=== PATIENT | female | born 1950 | race Caucasian/White ===

== ENCOUNTER 2016-07-15 05:10 | Day surgery (SDC) | payer MEDICARE, MEDICAID ==
[~2016-07-15] VITALS: Ht 163.8 cm; Wt 66.3 kg
[~2016-07-15 05:10] MED LIST: ADVIL200 MG PO; AMBIEN 5MG TABLE5 MG PO; ASPIRIN 32325 MG/TAB PO; ASPIRIN 81M81 MG/TA2 PO; CEPACOL SORE TH1 LO8 MM; CIPRO 500MG TA500 MG PO; CLARITIN 1010 MG/TAB PO; DEXILANT60 MG PO; FLAGYL500 MG PO; FLEXERIL 1010 MG/TAB PO; IMODIUM A-D2 MG PO; MULTI VITAMINS1 TAB PO; NORCO 325 MG-101 TAB PO; NORCO 325 MG-51 TAB PO; NORCO 325 MG-7.1 TAB PO; OSCAL 500 TAB500 MG PO; PHENERGAN 25 TA25 MG PO; PRILOSEC 20MG20 MG PO; PROTONIX 40MG T40 MG PO; PROZAC40 MG PO; REMERON 15M15 MG/TA1 PO; REQUIP 0.5MG0.5 MG PO; SARNA ANTI-ITC222 ML TP; SENOKOT S 50 MG1 TAB PO; TAZTIA360 PO; VITAMIN C500 MG PO; ZESTRIL 20MG TA20 MG PO; ZOFRAN ODT8 MG PO
[2016-07-15 06:09] VITALS: BP 110/54; PULSE 101; TEMP 98.1
[2016-07-15 08:25] VITALS: BP 99/44; PULSE 80; TEMP 97.6
[2016-07-15 08:40] VITALS: BP 85/68; PULSE 81
[2016-07-15 08:50] VITALS: BP 111/52; PULSE 89
[2016-07-15 10:00] VITALS: BP 105/51; PULSE 75; TEMP 97.9
== END 2016-07-15 09:15 | disposition home or self-care (01) ==
LOC: SDCO 05:10
DX: T84.84XA Pain due to internal orthopedic prosthetic devices, implants and grafts, initial encounter (principal); T81.89XA Other complications of procedures, not elsewhere classified, initial encounter; M19.90 Unspecified osteoarthritis, unspecified site; I10 Essential (primary) hypertension; M06.9 Rheumatoid arthritis, unspecified; Z79.899 Other long term (current) drug therapy; Z79.82 Long term (current) use of aspirin
CPT/HCPCS: J0690; J1100; J2250; J2405; J2704; J2765; J3010; J7120

== ENCOUNTER 2016-10-11 13:22 | Inpatient (IN) | payer MEDICARE, MEDICAID ==
[~2016-10-11] VITALS: Ht 162.6 cm; Wt 63.1 kg
[2016-10-11] MEDS ORDERED: MIRTAZAPINE7.5 MG PO (14:44)
[2016-10-11 15:21] LABS: MEAN CELL VOLUME 75 fl (80.0-100.0); MEAN CORPUSCULAR HGB CONC 33 g/dl (33.0-37.0); MEAN PLATELET VOLUME 10.8 fl (7.4-10.4); PLATELET COUNT 570 K/mm3 (130-400); REDCELL DISTRIBUTION WIDTH-CV 15.4 % (11.5-14.5)
[2016-10-11 15:31] LABS: ADJUSTED CALCIUM 8.6 mg/dL (8.4-10.2); ALBUMIN 3.5 gm/dL (3.5-5.0); BILIRUBIN,TOTAL 0.7 mg/dL (0.0-1.0); CALCIUM 8.2 mg/dL (8.4-10.2); CREATININE, serum 1.41 mg/dL (0.52-1.25); POTASSIUM 5.3 mmol/L (3.4-5.0); TOTAL PROTEIN 6.3 gm/dL (6.4-8.2)
[2016-10-11 15:41] LABS: HEMATOCRIT 31.5 % (37.0-47.0); HEMOGLOBIN 10.3 g/dl (12.5-16.0); MEAN CORPUSCULAR HEMOGLOBIN 25 pg (27.0-31.0); WHITE BLOOD COUNT 25.5 K/mm3 (4.8-10.8)
[2016-10-11 15:48] LABS: C-REACTIVE PROTEIN 21.7 mg/dL (0.0-0.9)
[2016-10-11 16:08] LABS: BAND 44 % (0-10); METAMYELOCYTE 1 % (0-0); MICROCYTOSIS 1+; MYELOCYTE 1 % (0-0); NEUTROPHILS 43 % (42.0-75.2); PLATELET ESTIMATE INCREASED (NORMAL); TOTAL CELLS COUNTED 101
[2016-10-11 16:09] LABS: ADD PATHOLOGY DIFF REVIEW YES
[2016-10-11 18:12] VITALS: BP 108/62; PULSE 108; TEMP 99.9
[2016-10-11 19:24] VITALS: BP 126/58; PULSE 113; TEMP 99.3
[2016-10-11 23:17] LABS: CALCIUM 7.5 mg/dL (8.4-10.2); CREATININE, serum 1.23 mg/dL (0.52-1.25); POTASSIUM 4.5 mmol/L (3.4-5.0)
[2016-10-11 23:26] VITALS: BP 133/71; PULSE 104; TEMP 99.2
[2016-10-12 04:17] VITALS: BP 96/63; PULSE 120; TEMP 99.1
[2016-10-12 07:08] LABS: MEAN CELL VOLUME 74 fl (80.0-100.0); MEAN CORPUSCULAR HGB CONC 33 g/dl (33.0-37.0); MEAN PLATELET VOLUME 11.3 fl (7.4-10.4); RED BLOOD COUNT 3.56 M/mm3 (4.10-5.30); REDCELL DISTRIBUTION WIDTH-CV 15.2 % (11.5-14.5); WHITE BLOOD COUNT 15.5 K/mm3 (4.8-10.8)
[2016-10-12 07:15] LABS: ADJUSTED CALCIUM 8.3 mg/dL (8.4-10.2); ALBUMIN 2.9 gm/dL (3.5-5.0); BILIRUBIN,TOTAL 0.6 mg/dL (0.0-1.0); CALCIUM 7.4 mg/dL (8.4-10.2); CREATININE, serum 1.04 mg/dL (0.52-1.25); MAGNESIUM 2.6 mg/dL (1.6-2.3); PHOSPHOROUS 3.7 mg/dL (2.5-4.5); POTASSIUM 4.1 mmol/L (3.4-5.0); TOTAL PROTEIN 5.5 gm/dL (6.4-8.2)
[2016-10-12 07:24] LABS: HEMATOCRIT 26.5 % (37.0-47.0); HEMOGLOBIN 8.6 g/dl (12.5-16.0); MEAN CORPUSCULAR HEMOGLOBIN 24 pg (27.0-31.0); PLATELET COUNT 426 K/mm3 (130-400)
[2016-10-12 07:42] VITALS: BP 144/65; PULSE 106; TEMP 98.8
[2016-10-12 08:39] LABS: PATHOLOGY DIFF REVIEW OK
[2016-10-12 09:11] LABS: ADD PATHOLOGY DIFF REVIEW NO
[2016-10-12 09:18] LABS: BAND 30 % (0-10); NEUTROPHILS 52 % (42.0-75.2); PLATELET ESTIMATE NORMAL (NORMAL); TOTAL CELLS COUNTED 100
[2016-10-12 11:18] VITALS: BP 146/75; PULSE 108
[2016-10-12 12:14] LABS: LACTATE DEHYDROGENASE 455 U/L (313-618)
[2016-10-12 12:23] LABS: TOTAL IRON BINDING CAPACITY 348 ug/dL (265-497)
[2016-10-12 12:49] LABS: FERRITIN 24 ng/mL (11-264)
[2016-10-12 15:25] VITALS: BP 144/66; PULSE 102; TEMP 96.9
[2016-10-12 19:16] VITALS: BP 139/82; PULSE 111; TEMP 97.7
[2016-10-12 23:45] VITALS: BP 173/78; PULSE 101; TEMP 97.9
[2016-10-13 03:14] VITALS: BP 146/81; PULSE 96; TEMP 98.6
[2016-10-13 07:38] LABS: CALCIUM 7.7 mg/dL (8.4-10.2); CREATININE, serum 0.73 mg/dL (0.52-1.25); MAGNESIUM 2.4 mg/dL (1.6-2.3); POTASSIUM 3.9 mmol/L (3.4-5.0)
[2016-10-13 08:13] VITALS: BP 149/77; PULSE 96; TEMP 98.4
[2016-10-13 11:28] VITALS: BP 148/73; PULSE 101; TEMP 98.3
[2016-10-13 15:24] VITALS: BP 144/66; PULSE 88; TEMP 98.5
[2016-10-13 20:08] VITALS: BP 160/85; PULSE 88; TEMP 97.5
[2016-10-14] VITALS (11 sets, daily range): BP systolic 105–160; BP diastolic 46–97; PULSE 77–102; TEMP 97.4–98.6
[2016-10-14 06:45] LABS: BASO # 0.1 (0.0-0.2); BASO % 0.6 % (0.0-2.0); EOS # 0.4 (0.0-0.7); EOS % 5.5 % (0-4.0); GRAN # 4.5 (1.4-6.5); GRAN % 55.9 % (42.2-75.2); LYMPH # 2.2 (1.2-3.4); LYMPH % 27.9 % (20.0-51.0); MEAN CELL VOLUME 76 fl (80.0-100.0); MEAN CORPUSCULAR HGB CONC 32 g/dl (33.0-37.0); MEAN PLATELET VOLUME 11.2 fl (7.4-10.4); MONO # 0.8 (0.1-0.6); MONO % 9.6 % (1.7-9.3); PLATELET COUNT 386 K/mm3 (130-400); RED BLOOD COUNT 3.59 M/mm3 (4.10-5.30); REDCELL DISTRIBUTION WIDTH-CV 15.3 % (11.5-14.5)
[2016-10-14 06:51] LABS: HEMATOCRIT 27.4 % (37.0-47.0); HEMOGLOBIN 8.7 g/dl (12.5-16.0); MEAN CORPUSCULAR HEMOGLOBIN 24 pg (27.0-31.0)
[2016-10-14 08:01] LABS: CALCIUM 8.1 mg/dL (8.4-10.2); CREATININE, serum 0.64 mg/dL (0.52-1.25)
[2016-10-15 05:14] VITALS: BP 128/61; PULSE 82; TEMP 97.9
[2016-10-15 08:53] LABS: MEAN CELL VOLUME 77 fl (80.0-100.0); MEAN CORPUSCULAR HGB CONC 31 g/dl (33.0-37.0); PLATELET COUNT 474 K/mm3 (130-400); RED BLOOD COUNT 3.48 M/mm3 (4.10-5.30); REDCELL DISTRIBUTION WIDTH-CV 15.6 % (11.5-14.5); WHITE BLOOD COUNT 10.3 K/mm3 (4.8-10.8)
[2016-10-15 09:03] VITALS: BP 130/76; PULSE 87; TEMP 98.3
[2016-10-15 09:11] LABS: HEMATOCRIT 26.8 % (37.0-47.0); HEMOGLOBIN 8.4 g/dl (12.5-16.0); MEAN CORPUSCULAR HEMOGLOBIN 24 pg (27.0-31.0)
[2016-10-15 09:21] LABS: CALCIUM 8.7 mg/dL (8.4-10.2); CREATININE, serum 0.72 mg/dL (0.52-1.25); POTASSIUM 3.8 mmol/L (3.4-5.0)
[2016-10-15] MEDS ORDERED: FLAGYL500 MG PO (10:10)
[2016-10-15] MEDS ORDERED: CIPRO 500MG TA500 MG PO (10:11)
[2016-10-15 10:12] LABS: BAND 8 % (0-10); BASOPHIL 2 % (0-2); EOSINOPHIL 3 % (0-4); NEUTROPHILS 45 % (42.0-75.2); TOTAL CELLS COUNTED 100
[2016-10-15 10:13] LABS: ANISOCYTOSIS 1+; MICROCYTOSIS 2+; PLATELET ESTIMATE INCREASED (NORMAL)
[2016-10-15 10:14] LABS: ADD PATHOLOGY DIFF REVIEW YES
[2016-10-15] MEDS ORDERED: LIALDA 1.2 GM1.2 GM PO (10:14)
[2016-10-15] MEDS ORDERED: FERROUS SU325 MG/TAB PO (12:13)
[2016-10-16 11:55] LABS: PATHOLOGY DIFF REVIEW OK
== END 2016-10-15 15:17 | disposition home or self-care (01) | DRG 871 ==
LOC: COL.ER 13:22 → MEDICAL 16:56
PROVIDERS: Family Medicine; Internal Medicine; Internal Medicine Gastroenterology
PROC: 0DBN8ZX Excision of Sigmoid Colon, Via Natural or Artificial Opening Endoscopic, Diagnostic (ICD-10-PCS; principal; 2016-10-14 12:00)
PROC: 0DJ08ZZ Inspection of Upper Intestinal Tract, Via Natural or Artificial Opening Endoscopic (ICD-10-PCS; 2016-10-14 12:00)
DX: A41.9 Sepsis, unspecified organism (principal); K55.039 Acute (reversible) ischemia of large intestine, extent unspecified; A09 Infectious gastroenteritis and colitis, unspecified; E87.1 Hypo-osmolality and hyponatremia; N17.9 Acute kidney failure, unspecified; E44.0 Moderate protein-calorie malnutrition; D62 Acute posthemorrhagic anemia; K92.1 Melena; E87.2 Acidosis; I10 Essential (primary) hypertension; Z87.891 Personal history of nicotine dependence; E87.5 Hyperkalemia; K21.9 Gastro-esophageal reflux disease without esophagitis
CPT/HCPCS: 99223-AI; 99232-AI; 99233-AI; 99239; C9113; J1650; J2270; J2405; J2543; J2704; J2765; J7030; J7050; J7120

== ENCOUNTER 2016-12-04 13:06 | Inpatient (IN) | payer MEDICARE, MEDICAID ==
[2016-12-04] VITALS (294 sets, daily range): BP systolic 117–120; BP diastolic 63–64; PULSE 81–84; TEMP 97.5–99; O2SAT 89–100
[~2016-12-04] VITALS: Ht 165.1 cm; Wt 63.5 kg
[~2016-12-04 13:06] MED LIST changes: +FERROUS SU325 MG/TAB PO; +LIALDA 1.2 GM1.2 GM PO; +MIRTAZAPINE7.5 MG PO
[2016-12-04 13:57] LABS: MEAN CELL VOLUME 76 fl (80.0-100.0); MEAN CORPUSCULAR HGB CONC 32 g/dl (33.0-37.0); MEAN PLATELET VOLUME 11.1 fl (7.4-10.4); PLATELET COUNT 646 K/mm3 (130-400); RED BLOOD COUNT 4.48 M/mm3 (4.10-5.30); REDCELL DISTRIBUTION WIDTH-CV 16.4 % (11.5-14.5)
[2016-12-04 14:01] LABS: ADJUSTED CALCIUM 9.3 mg/dL (8.4-10.2); ALBUMIN 3.8 gm/dL (3.5-5.0); BILIRUBIN,TOTAL 0.6 mg/dL (0.0-1.0); C-REACTIVE PROTEIN 1.3 mg/dL (0.0-0.9); CALCIUM 9.1 mg/dL (8.4-10.2); CREATININE, serum 0.96 mg/dL (0.52-1.25); HEMATOCRIT 34.1 % (37.0-47.0); HEMOGLOBIN 10.8 g/dl (12.5-16.0); MEAN CORPUSCULAR HEMOGLOBIN 24 pg (27.0-31.0); POTASSIUM 4.1 mmol/L (3.4-5.0); TOTAL PROTEIN 6.8 gm/dL (6.4-8.2); WHITE BLOOD COUNT 27.3 K/mm3 (4.8-10.8)
[2016-12-04 14:02] LABS: ADD PATHOLOGY DIFF REVIEW NO
[2016-12-04 14:34] LABS: ANISOCYTOSIS 1+; BAND 17 % (0-10); MYELOCYTE 4 % (0-0); NEUTROPHILS 61 % (42.0-75.2); PLATELET ESTIMATE INCREASED (NORMAL); TOTAL CELLS COUNTED 100
[2016-12-04 14:35] LABS: MICROCYTOSIS 1+; OVALOCYTES 1+
[2016-12-04 15:55] LABS: PH 5 (5-8); SQUAMOUS EPITHELIAL None Seen /hpf; URINE APPEARANCE Clear; URINE BACTERIA None Seen /hpf; URINE BILIRUBIN Negative (NEGATIVE); URINE BLOOD Negative (NEGATIVE); URINE COLOR Amber; URINE GLUCOSE Negative (NEGATIVE); URINE KETONE Trace (NEGATIVE); URINE RBC 0-2 /hpf; URINE UROBILINOGEN Negative (NEGATIVE); URINE WBC 0-2 /hpf
[2016-12-05] VITALS (936 sets, daily range): BP systolic 116–153; BP diastolic 49–73; PULSE 69–100; TEMP 97.8–98.7; O2SAT 80–100
[2016-12-05 08:09] LABS: BASO # 0.1 (0.0-0.2); BASO % 0.5 % (0.0-2.0); EOS # 0.5 (0.0-0.7); EOS % 4.7 % (0-4.0); GRAN # 6.1 (1.4-6.5); LYMPH # 2.2 (1.2-3.4); LYMPH % 22.9 % (20.0-51.0); MEAN CELL VOLUME 76 fl (80.0-100.0); MEAN CORPUSCULAR HGB CONC 32 g/dl (33.0-37.0); MEAN PLATELET VOLUME 10.3 fl (7.4-10.4); MONO # 0.7 (0.1-0.6); MONO % 7.5 % (1.7-9.3); RED BLOOD COUNT 3.45 M/mm3 (4.10-5.30); REDCELL DISTRIBUTION WIDTH-CV 16.7 % (11.5-14.5); WHITE BLOOD COUNT 9.6 K/mm3 (4.8-10.8)
[2016-12-05 08:18] LABS: HEMATOCRIT 26.2 % (37.0-47.0); HEMOGLOBIN 8.4 g/dl (12.5-16.0); MEAN CORPUSCULAR HEMOGLOBIN 24 pg (27.0-31.0); PLATELET COUNT 440 K/mm3 (130-400)
[2016-12-05 08:23] LABS: CALCIUM 8.1 mg/dL (8.4-10.2); CREATININE, serum 0.65 mg/dL (0.52-1.25)
[2016-12-06 03:23] VITALS: BP 143/59; PULSE 73; TEMP 97.7
[2016-12-06 07:48] VITALS: BP 155/71; PULSE 88; TEMP 98.1
[2016-12-06 11:30] VITALS: BP 155/70; PULSE 90; TEMP 98.7
[2016-12-06] MEDS ORDERED: CIPRO 500MG TA500 MG PO (12:57)
[2016-12-06] MEDS ORDERED: FLAGYL500 MG PO (12:57)
== END 2016-12-06 16:00 | disposition home health service (06) | DRG 394 ==
LOC: COL.ER 13:06 → ICU 15:31 → MEDICAL 12-05 17:08
PROVIDERS: Emergency Medicine; Nurse Practitioner Family
DX: K55.039 Acute (reversible) ischemia of large intestine, extent unspecified (principal); E87.1 Hypo-osmolality and hyponatremia; I10 Essential (primary) hypertension; D64.9 Anemia, unspecified; Z87.891 Personal history of nicotine dependence; K55.1 Chronic vascular disorders of intestine; K21.9 Gastro-esophageal reflux disease without esophagitis
CPT/HCPCS: 99223-AI; 99233-AI; 99239; C9113; J0744; J1170; J2405; J7030; Q9967

== ENCOUNTER 2017-04-26 12:50 | Inpatient (IN) | payer MEDICARE, MEDICAID ==
[~2017-04-26] VITALS: Ht 162.6 cm; Wt 66.8 kg
[2017-06-07] VITALS (11 sets, daily range): BP systolic 93–134; BP diastolic 39–91; PULSE 76–103; TEMP 97.7–98.5
[2017-06-07 09:01] LABS: CALCIUM 9.6 mg/dL (8.4-10.2); CREATININE, serum 0.74 mg/dL (0.52-1.25); POTASSIUM 4.6 mmol/L (3.4-5.0)
[2017-06-08 00:55] VITALS: BP 121/64; PULSE 94; TEMP 98.5
[2017-06-08 04:00] VITALS: BP 148/65; PULSE 83; TEMP 98.3
[2017-06-08 08:03] VITALS: BP 131/64; PULSE 109; TEMP 98.1
[2017-06-08 12:43] VITALS: BP 140/75; PULSE 89; TEMP 98.6
== END 2017-06-08 15:03 | disposition home or self-care (01) | DRG 483 ==
LOC: JCC 05-29 10:00
PROVIDERS: Nurse Anesthetist, Certified Registered; Orthopaedic Surgery
PROC: 0RRK00Z Replacement of Left Shoulder Joint with Reverse Ball and Socket Synthetic Substitute, Open Approach (ICD-10-PCS; principal; 2017-06-07 10:20)
DX: M19.012 Primary osteoarthritis, left shoulder (principal); I12.9 Hypertensive chronic kidney disease with stage 1 through stage 4 chronic kidney disease, or unspecified chronic kidney disease; N18.3 Chronic kidney disease, stage 3 (moderate); M79.7 Fibromyalgia; F17.210 Nicotine dependence, cigarettes, uncomplicated; M75.102 Unspecified rotator cuff tear or rupture of left shoulder, not specified as traumatic; J44.9 Chronic obstructive pulmonary disease, unspecified
CPT/HCPCS: C1776; J0690; J1100; J2250; J2370; J2405; J2704; J2795; J3010; J7042; J7050; J7120

== ENCOUNTER 2019-01-28 19:47 | Emergency (ER) | payer MEDICARE, MEDICAID ==
[~2019-01-28] VITALS: Ht 165.1 cm; Wt 57.3 kg
[2019-01-28 20:04] VITALS: TEMP 98.8
[2019-01-28 21:48] VITALS: BP 132/70; PULSE 84
[2019-01-29] MEDS ORDERED: AMOXICILLIN 8751 TAB PO (13:28)
== END 2019-01-28 21:50 | disposition home or self-care (01) ==
LOC: COL.ER 19:47
DX: S05.01XA Injury of conjunctiva and corneal abrasion without foreign body, right eye, initial encounter (principal); I10 Essential (primary) hypertension; F32.9 Major depressive disorder, single episode, unspecified; F17.210 Nicotine dependence, cigarettes, uncomplicated; Z23 Encounter for immunization

== ENCOUNTER 2019-01-29 12:54 | Emergency (ER) | payer MEDICARE, MEDICAID ==
[~2019-01-29] VITALS: Ht 165.1 cm; Wt 62.7 kg
[2019-01-29 13:00] VITALS: BP 166/89; TEMP 98
[2019-01-29] MEDS ORDERED: AMOXICILLIN 8751 TAB PO (13:28)
[2019-01-29 13:45] VITALS: PULSE 86
== END 2019-01-29 13:46 | disposition home or self-care (01) ==
LOC: COL.ER 12:54
DX: L03.213 Periorbital cellulitis (principal); H10.89 Other conjunctivitis; Z88.5 Allergy status to narcotic agent

== ENCOUNTER 2019-01-29 18:23 | Emergency (ER) | payer MEDICARE, MEDICAID ==
[~2019-01-29] VITALS: Ht 165.1 cm; Wt 61.8 kg
[~2019-01-29 18:23] MED LIST changes: +AMOXICILLIN 8751 TAB PO
[2019-01-29 18:43] VITALS: BP 156/92; PULSE 96
== END 2019-01-29 20:46 | disposition left against medical advice (07) ==
LOC: COL.ER 18:23
DX: S05.01XA Injury of conjunctiva and corneal abrasion without foreign body, right eye, initial encounter (principal); L03.213 Periorbital cellulitis; I10 Essential (primary) hypertension; K21.9 Gastro-esophageal reflux disease without esophagitis; K52.9 Noninfective gastroenteritis and colitis, unspecified; F17.210 Nicotine dependence, cigarettes, uncomplicated; Z98.890 Other specified postprocedural states; X58.XXXA Exposure to other specified factors, initial encounter

== ENCOUNTER 2019-03-07 10:18 | Emergency (ER) | payer MEDICARE, MEDICAID ==
[~2019-03-07] VITALS: Ht 165.1 cm; Wt 61.4 kg
[2019-03-07 10:22] VITALS: BP 187/88; TEMP 97.9
[2019-03-07 11:32] LABS: COLLECTION METHOD CLEAN CATCH
[2019-03-07 11:38] LABS: PH 6 (5-8); SQUAMOUS EPITHELIAL None Seen /hpf; URINE APPEARANCE Clear; URINE BACTERIA None Seen /hpf; URINE BILIRUBIN Negative (NEGATIVE); URINE BLOOD Negative (NEGATIVE); URINE COLOR Yellow; URINE GLUCOSE Negative (NEGATIVE); URINE KETONE Negative (NEGATIVE); URINE LEUKOCYTE ESTERASE Negative (NEGATIVE); URINE NITRATE Negative (NEGATIVE); URINE PROTEIN(semi-quant) Negative (NEGATIVE); URINE RBC 0-2 /hpf; URINE UROBILINOGEN Negative (NEGATIVE)
[2019-03-07 11:48] LABS: BASO # 0.1 (0.0-0.2); BASO % 0.5 % (0.0-2.0); EOS # 0.4 (0.0-0.7); EOS % 3.4 % (0-4.0); GRAN # 7.6 (1.4-6.5); GRAN % 62.9 % (42.2-75.2); HEMOGLOBIN 13.9 g/dl (12.5-16.0); LYMPH # 3.2 (1.2-3.4); LYMPH % 26.5 % (20.0-51.0); MEAN CELL VOLUME 92 fl (80.0-100.0); MEAN CORPUSCULAR HEMOGLOBIN 30 pg (27.0-31.0); MEAN CORPUSCULAR HGB CONC 32 g/dl (33.0-37.0); MEAN PLATELET VOLUME 11.9 fl (7.4-10.4); MONO # 0.8 (0.1-0.6); MONO % 6.3 % (1.7-9.3); PLATELET COUNT 281 K/mm3 (130-400); RED BLOOD COUNT 4.68 M/mm3 (4.10-5.30); REDCELL DISTRIBUTION WIDTH-CV 13.7 % (11.5-14.5)
[2019-03-07 12:17] LABS: ALANINE AMINOTRANSFERASE 14 U/L (9-52); ALBUMIN 4.6 gm/dL (3.5-5.0); ALKALINE PHOSPHATASE 76 U/L (50-136); ANION GAP 10 mmol/L (7-16); AST,SGOT 28 U/L (15-37); BILIRUBIN,TOTAL 0.3 mg/dL (0.0-1.0); BLOOD UREA NITROGEN 17 mg/dL (7-17); CALCIUM 9.4 mg/dL (8.4-10.2); CARBON DIOXIDE 26 mmol/L (22-30); CHLORIDE 102 mmol/L (98-107); CREATININE, serum 0.65 (0.52-1.25); GLUCOSE 99 mg/dL (74-106); POTASSIUM 3.8 mmol/L (3.4-5.0); SODIUM 138 mmol/L (137-145); TOTAL PROTEIN 7.6 gm/dL (6.4-8.2)
[2019-03-07 12:29] LABS: C-REACTIVE PROTEIN < 0.5 mg/dL (0.0-0.9)
[2019-03-07 12:41] LABS: TROPONIN-I < 0.012 ng/mL (0.000-0.035)
[2019-03-07 14:05] VITALS: PULSE 91
--- NOTE | 2019-03-07 15:05 | NUR ---
JESSA lr responded to a protective services social worker request for the patient due to obtaining medications with no PCP. The patient reports she was seeing Dr. Decker but missed appointments and was "dropped by Dr. Decker." The patient reports she no longer has a PCP is was not interested in obtaining a one at this time. JESSA student inquired about how the patient receives medications, patient states, "[facility] just calls a doctor to get them filled." JESSA lr contacted Dr. Decker and office reports that since November the patient no longer sees Dr. Decker. The patient receives medications from [facility]. JESSA lr contacted [facility] and pharmacy customer relations representative reports they have Dr. Decker as PCP for patient. Wax Pot Tender reports that he will make a note that the patient needs to get a new PCP if she wants refills. JESSA lr collaborated the above information with the patient's nurse.
== END 2019-03-07 14:05 | disposition home or self-care (01) ==
LOC: COL.ER 10:18
PROVIDERS: Emergency Medicine
DX: M79.602 Pain in left arm (principal); K21.9 Gastro-esophageal reflux disease without esophagitis; I10 Essential (primary) hypertension; F17.210 Nicotine dependence, cigarettes, uncomplicated
CPT/HCPCS: J1170

== ENCOUNTER 2019-04-20 12:14 | Emergency (ER) | payer MEDICARE, MEDICAID ==
[~2019-04-20] VITALS: Ht 152.4 cm; Wt 59.1 kg
[2019-04-20 12:15] VITALS: TEMP 98.4
[2019-04-20] MEDS ORDERED: ASPIRIN 81M81 MG/TA2 PO (12:18)
[2019-04-20] MEDS ORDERED: NEURONTIN300 MG/CAP PO (12:33)
[2019-04-20] MEDS ORDERED: FLEXERIL 1010 MG/TAB PO (12:33)
[2019-04-20 12:51] LABS: BASO # 0.1 (0.0-0.2); BASO % 0.5 % (0.0-2.0); EOS # 0.3 (0.0-0.7); EOS % 2.4 % (0-4.0); GRAN # 7.3 (1.4-6.5); GRAN % 61.7 % (42.2-75.2); HEMATOCRIT 41.4 % (37.0-47.0); HEMOGLOBIN 13.5 g/dl (12.5-16.0); LYMPH # 3.2 (1.2-3.4); LYMPH % 27.2 % (20.0-51.0); MEAN CELL VOLUME 91 fl (80.0-100.0); MEAN CORPUSCULAR HEMOGLOBIN 30 pg (27.0-31.0); MEAN CORPUSCULAR HGB CONC 33 g/dl (33.0-37.0); MONO # 0.9 (0.1-0.6); MONO % 7.7 % (1.7-9.3); PLATELET COUNT 249 K/mm3 (130-400); RED BLOOD COUNT 4.56 M/mm3 (4.10-5.30); REDCELL DISTRIBUTION WIDTH-CV 13.9 % (11.5-14.5)
[2019-04-20 13:03] LABS: ALANINE AMINOTRANSFERASE 11 U/L (9-52); ALBUMIN 4.2 gm/dL (3.5-5.0); ALKALINE PHOSPHATASE 51 U/L (50-136); ANION GAP 9 mmol/L (7-16); AST,SGOT 24 U/L (15-37); BILIRUBIN,TOTAL 0.3 mg/dL (0.0-1.0); BLOOD UREA NITROGEN 15 mg/dL (7-17); CALCIUM 9.2 mg/dL (8.4-10.2); CARBON DIOXIDE 28 mmol/L (22-30); CHLORIDE 102 mmol/L (98-107); CREATINE KINASE 81 U/L (30-135); GLUCOSE 106 mg/dL (74-106); POTASSIUM 3.9 mmol/L (3.4-5.0); SODIUM 139 mmol/L (137-145)
[2019-04-20 13:07] LABS: C-REACTIVE PROTEIN < 0.5 mg/dL (0.0-0.9)
[2019-04-20 13:56] VITALS: BP 160/84; PULSE 94
[2019-04-21] MEDS ORDERED: DOXYCYCLINE 10100 MG PO (17:48)
[2019-04-21] MEDS ORDERED: NORCO 325 MG-51 TAB PO (17:48)
[2019-04-21] MEDS ORDERED: NORVASC 5MG5 MG/TAB PO (17:48)
== END 2019-04-20 13:58 | disposition home or self-care (01) ==
LOC: COL.ER 12:14
PROVIDERS: Emergency Medicine
DX: M79.602 Pain in left arm (principal)

== ENCOUNTER 2019-04-21 15:39 | Emergency (ER) | payer MEDICARE, MEDICAID ==
[~2019-04-21] VITALS: Ht 165.1 cm; Wt 65.9 kg
[~2019-04-21 15:39] MED LIST changes: +NEURONTIN300 MG/CAP PO
[2019-04-21 16:19] LABS: BASO # 0.1 (0.0-0.2); BASO % 0.6 % (0.0-2.0); EOS # 0.5 (0.0-0.7); EOS % 4.6 % (0-4.0); GRAN # 6.4 (1.4-6.5); GRAN % 54.6 % (42.2-75.2); HEMATOCRIT 39.6 % (37.0-47.0); HEMOGLOBIN 13.1 g/dl (12.5-16.0); LYMPH % 33.8 % (20.0-51.0); MEAN CELL VOLUME 90 fl (80.0-100.0); MEAN CORPUSCULAR HEMOGLOBIN 30 pg (27.0-31.0); MEAN CORPUSCULAR HGB CONC 33 g/dl (33.0-37.0); MEAN PLATELET VOLUME 12.3 fl (7.4-10.4); MONO # 0.7 (0.1-0.6); MONO % 6.1 % (1.7-9.3); PLATELET COUNT 245 K/mm3 (130-400); RED BLOOD COUNT 4.38 M/mm3 (4.10-5.30)
[2019-04-21 16:38] LABS: ALANINE AMINOTRANSFERASE 16 U/L (9-52); ALBUMIN 4.1 gm/dL (3.5-5.0); ALKALINE PHOSPHATASE 51 U/L (50-136); ANION GAP 8 mmol/L (7-16); AST,SGOT 23 U/L (15-37); BILIRUBIN,TOTAL 0.1 mg/dL (0.0-1.0); BLOOD UREA NITROGEN 15 mg/dL (7-17); CALCIUM 9.1 mg/dL (8.4-10.2); CARBON DIOXIDE 25 mmol/L (22-30); CHLORIDE 104 mmol/L (98-107); CREATININE, serum 0.67 (0.52-1.25); GLUCOSE 105 mg/dL (74-106); POTASSIUM 3.5 mmol/L (3.4-5.0); SODIUM 137 mmol/L (137-145); TOTAL PROTEIN 6.7 gm/dL (6.4-8.2)
[2019-04-21 16:39] LABS: C-REACTIVE PROTEIN < 0.5 mg/dL (0.0-0.9)
[2019-04-21 16:50] LABS: TROPONIN-I < 0.012 ng/mL (0.000-0.035)
[2019-04-21] MEDS ORDERED: DOXYCYCLINE 10100 MG PO (17:48)
[2019-04-21] MEDS ORDERED: NORCO 325 MG-51 TAB PO (17:48)
[2019-04-21] MEDS ORDERED: NORVASC 5MG5 MG/TAB PO (17:48)
[2019-04-21 18:03] VITALS: BP 187/100; PULSE 88; TEMP 96.9
== END 2019-04-21 18:03 | disposition home or self-care (01) ==
LOC: COL.ER 15:39
PROVIDERS: Emergency Medicine
DX: M25.512 Pain in left shoulder (principal); F17.210 Nicotine dependence, cigarettes, uncomplicated; I10 Essential (primary) hypertension; Z79.82 Long term (current) use of aspirin
CPT/HCPCS: J2405; J3010